=== PATIENT | male | born 1990 | race Caucasian/White ===

== ENCOUNTER 2017-12-02 19:24 | Emergency (ER) | payer MEDICAID ==
[2017-12-02] MEDS: ONDANSETRON 4 MG INJ IV ×2 (19:50→21:15)
[2017-12-02] MEDS: HYDROmorphONE 2 MG/ML SYG IV (19:50)
[2017-12-02] MEDS: LIDOCAINE 1% (MDV) 10 ML INJ INJ (21:15)
[2017-12-02] MEDS: HYDROmorphONE 1 MG/5 ML IV SYRINGE IV (21:15)
== END 2017-12-02 22:51 | disposition home or self-care (01) ==
LOC: E/R 22:51
DX: S09.90XA Unspecified injury of head, initial encounter (principal); S81.012A Laceration without foreign body, left knee, initial encounter; S60.512A Abrasion of left hand, initial encounter; S60.511A Abrasion of right hand, initial encounter; F17.210 Nicotine dependence, cigarettes, uncomplicated; R07.9 Chest pain, unspecified; R41.82 Altered mental status, unspecified; W17.89XA Other fall from one level to another, initial encounter; Y92.9 Unspecified place or not applicable
CPT/HCPCS: 12001; 36415; 70450; 71045; 72125; 73030-RT; 73560; 73562; 73610; 73630-LT; 96374; 96375; 96376; 99285-25